=== PATIENT | male | born 1995 | race African-American/Black ===

== ENCOUNTER 2023-12-03 08:48 | Emergency (ER) | payer SELFPAY ==
[~2023-12-03] VITALS: Ht 182.9 cm; Wt 82.0 kg
[~2023-12-03 08:48] MED LIST: ADVIR; SINGULAR; [UNRECOGNIZED DRUG - OTHER]
[2023-12-03 08:50] VITALS: O2SAT 100
[2023-12-03] MEDS ORDERED: IBUP-2028 MT (11:45)
[2023-12-03] MEDS: IBUPROFEN 600MG TABLET PO ONE (12:24)
[2023-12-03 13:04] VITALS: BP 124/89; PULSE 91; RESP 18; TEMP 98
== END 2023-12-03 13:07 | disposition home or self-care (01) ==
LOC: ER 09:15
DX: R07.9 Chest pain, unspecified (principal); J45.909 Unspecified asthma, uncomplicated
CPT/HCPCS: 71045; 93005; 99283